=== PATIENT | female | born 1985 | race African-American/Black ===

== ENCOUNTER 2024-01-28 15:12 | Emergency (ER) | payer OTHER, SELFPAY ==
[2024-01-28 15:25] VITALS: BP 148/93; PULSE 84; RESP 16; TEMP 36.6; O2SAT 100; BMI 25.9
--- NOTE | 2024-01-28 15:25 | ED_ITS ---
HPI - General Adult General Chief complaint: Ear Problems Stated complaint: ref here by Dr Marks for IV fluids Time Seen by Provider: 01/28/24 16:02 Source: patient Mode of arrival: ambulatory Limitations: no limitations History of Present Illness HPI narrative: Patient is a year old female who presents to the emergency department for evaluation. She states she was contacted by her primary care doctor to present to the emergency department to receive IV antibiotics for a bone infection from her ear infection. She states she has been experiencing recurrent ear infections over the past year. She was evaluated by ENT surgeons of [facility] approximately 3 months ago, she has a known rupture of the left TM. Patient states on 12/24/2023 she tested positive for COVID-19, she was experiencing headaches along with this. Headache has been primarily left-sided, and relatively constant since then. On 12/27/2023 she received a prescription for a 7 day course of amoxicillin and hydrocortisone/neomycin/polymyxin B otic solution to treat a left ear infection. On 01/10/2024 she received her COVID-19 and influenza vaccine, ultimately resulting in progressive worsening of her headache. On 01/14/2024 she presented to [facility] for evaluation, she states that she had received IV fluids nausea medication for management of her headache, and was discharged home On 01/18/2024 she was evaluated by her primary care doctor for follow-up, and outpatient MRI was ordered On 01/20/2024 she was evaluated by ENT - advised that the rupture was slowly healing, has a follow-up appointment in March if not completely resolved there is plan for surgery On 01/24/2024 she had an MRI obtained which reveals a large amount of fluid within the left mastoids; left-sided mastoiditis, mucoid retention cyst within the bilateral maxillary sinuses Related Data Previous Rx's ?Medication ?Instructions ?Recorded [id number]-[id number]-[id number] 1 cap PO Q8H PRN pain #20 caps 01/28/24 50 mg-300 mg-40 mg capsule (Fioricet) cefdinir 300 mg capsule 300 mg PO BID #14 caps 01/28/24 Allergies Allergy/AdvReac Type Severity Reaction Status Date / Time No Known Allergies Allergy Verified 01/28/24 15:27 Review of Systems 2 Review of Systems: Yes all other systems are reviewed and are negative PMFSH Past Medical History Attestation statement: The following information was validated with the patient. Source: old records reviewed Physical Exam ED Vital Signs: Vital Signs - 24 hr 01/28/24 15:25 Temperature 97.8 F Pulse Rate 84 Respiratory Rate 16 Blood Pressure 148/93 H Pulse Oximetry 100 Oxygen Delivery Method Room Air BMI result Body Mass Index 25.9 Appearance: Alert.?Oriented to person, place and time. No acute distress.?Normal affect. Eyes: Pupils equal, round and reactive to light.? EOMI. No nystagmus. ENT: Pharynx normal.??Left TM with rupture, mild TTP over L mastoid,no auricular tenderness or swelling, no pain upon manipulation of the tragus, no evidence of otitis externa. Neck: Normal inspection.? Neck supple.??No cervical adenopathy. No nuchal rigidity CVS: Heart sounds normal. Normal heart rate and rhythm.? Pulses normal.?? Respiratory: No respiratory distress.? Lung sounds clear to auscultation bilaterally?? Abdomen: Soft and non-tender. Normoactive bowel sounds. Skin: Skin warm and dry.? Normal skin color. Extremities: No lower extremity edema.? Neuro: Moves all extremities spontaneously. Sensation intact bilaterally. CN II- XII intact. No focal neuro deficits. Ambulates with normal steady gait. Course Course Course Narrative: This is a Rapid Medical Examination (RME) performed by Cecilia Murphy PA-C in triage. Full HPI, ROS, assessment and treatment plan per primary provider in the Main ED. 38 yo female here requesting IV abx. had MRI completed on 01/26/24 after reporting left sided migraine w/ dizziness and blurred vision. evaluated at [facility]. called today and was told she has an infection in my ear bone and needed to come here for IV antibiotics. symptoms have continued. + L ear w/ ruptured TM. Slightly tender to palpation of mastoid without protrusion of the auricle or obvious mass. Plan: records requested from [facility]. basic labs ordered. Medical Decision Making Medical Decision Making MDM Narrative: Patient is a 38-year-old female with past medical history of leukopenia, thrombocytopenia, small B-cell lymphoma reportedly in remission since 2013, depression, cirrhosis presenting for evaluation in the emergency department by advised of her primary care doctor due to MRI findings consistent with mastoiditis. History and physical examination concerning for chronic mastoiditis chronic otitis media of the ruptured verses acute suppurative mastoiditis. She is not experiencing fevers, there was no localized erythema over the mastoid bone, no edematous pinna or displacement of the auricle. She overall appears well, nontoxic, afebrile without tachycardia. No meningismus to suggest meningitis. Recent MRI, not consistent with ICH, SDH, aneurysm, intracranial mass. No temporal tenderness. She has no focal neurological deficits. I discussed this case with ED attending Dr. Justice who agrees this is likely chronic otitis media, discussed consideration for IV antibiotics and/or transfer to tertiary care center with ENT coverage, do not suspect this is acute superficial mastoiditis and such treatment. Plan of care for discharge home with course of oral antibiotics, Fioricet for her headache management, and outpatient follow-up with ENT/ PCP , she was given strict return precautions Differential Diagnosis Differential Diagnoses: The differential diagnosis associated with the presentation includes (See narrative above) Admission/Observation Consideration of admission/observation: Escalation of care including admission/observation considered (See narrative above) Lab Data MDM Lab Attestation statement: I reviewed the patient's lab results. CBC reveals leukopenia 2.8, known history of such unclear of baseline, no anemia, thrombocytopenia. No electrolyte derangement. No MONA. 01/28/24 15:36 01/28/24 15:36 Labs: Lab Results 01/28/24 Range/Units 15:36 WBC 2.8 L (4.8-10.8) X10*3/uL RBC 4.68 (4.20-5.50) X10*6/uL Hgb 12.6 (12.0-16.0) g/dl Hct 38.9 (37.0-47.0) % MCV 83.1 (80.0-98.0) fL MCH 26.9 L (27.0-33.0) pg MCHC 32.4 (31.0-35.0) g/dl RDW 14.4 (11.0-16.0) % Plt Count 108 L (160-400) X10*3/uL MPV 11.4 (9.4-12.3) fL Immature Gran % (Auto) 0.4 (0.0-0.4) % Neut % (Auto) 54.9 (45-73) % Lymph % (Auto) 27.7 (20-40) % [place] % (Auto) 14.5 H (2-11) % Eos % (Auto) 1.8 (0-4) % Baso % (Auto) 0.7 (0-2) % Lymph # (Auto) 0.8 L (1.2-4.9) X10*3/uL [place] # (Auto) 0.4 (0.1-1.2) X10*3/uL Eos # (Auto) 0.1 (0.0-0.4) X10*3/uL Baso # (Auto) 0.0 (0.0-0.2) X10*3/uL Abs Immat Gran (auto) 0.01 (0.00-0.03) X10*3/uL Absolute Neuts (auto) 1.6 L (2.0-8.3) x10*3/uL Absolute Nucleated RBC 0.000 (0.0-0.012) X10*3/uL Nucleated RBC % (auto) 0.0 (0.0-0.2) /100WBC Sodium 138 (135-145) mmol/L Potassium 4.5 (3.3-5.1) mmol/L Chloride 107 (96-108) mmol/L Carbon Dioxide 27 (22-29) mmol/L Anion Gap 9 L (12-20) BUN 9 (9-16) mg/dL Creatinine 0.74 (0.5-1.4) mg/dL Estim Creat Clear Calc 85.5 Estimated GFR > 60 Random Glucose 91 (60-115) mg/dL Calcium 8.9 (8.4-10.2) mg/dL Total Bilirubin 0.4 (0.0-1.0) mg/dL AST 43 H (5-31) U/L ALT 52 H (0-31) U/L Alkaline Phosphatase 116 (39-117) U/L Total Protein 7.6 (6.5-8.0) g/dL Albumin 3.9 (3.5-5.0) g/dL External Record Review External record reviewed: Outpatient record (See HPI) and Prior outpatient radiology (See HPI) Prescription Management I considered prescription management with: Pain Medication and Antibiotic Discharge Plan Discharge Clinical Impression: Mastoiditis Qualifiers: Laterality: left Qualified Code(s): H70.92 - Unspecified mastoiditis, left ear Patient Disposition: Home, Self-Care Instructions: Mastoiditis (ED) Additional Instructions: Complete entire course of antibiotics as prescribed; cefdinir A prescription for management of your headaches has been sent to the pharmacy; Fioricet. This medication may make you feel drowsy. Contact your ENT specialist first thing Wednesday to arrange for follow-up Prescriptions: New cefdinir 300 mg capsule 300 mg PO BID Qty: 14 0RF [id number] [Fioricet] 50-300-40 mg capsule 1 cap PO Q8H PRN (Reason: pain) Qty: 20 0RF Referrals: Sandra Marks PA [Primary Care Provider] - Print Language: Czech
[2024-01-28 15:42] LABS: MANUAL DIFF FLAG NO
[2024-01-28 15:55] LABS: Basophils Percent Auto 0.7 % (0-2); Eosinophils Absolute Auto 0.1 X10*3/uL (0.0-0.4); Eosinophils Percent Auto 1.8 % (0-4); Hematocrit 38.9 % (37.0-47.0); Hemoglobin 12.6 g/dl (12.0-16.0); Imm Gran Abs Auto 0.01 X10*3/uL (0.00-0.03); Imm Gran Pct Auto 0.4 % (0.0-0.4); Lymphocytes Absolute Auto 0.8 X10*3/uL (1.2-4.9); Lymphocytes Percent Auto 27.7 % (20-40); Mean Corpuscular HGB Conc 32.4 g/dl (31.0-35.0); Mean Corpuscular Hemoglobin 26.9 pg (27.0-33.0); Mean Corpuscular Volume 83.1 fL (80.0-98.0); Mean Platelet Volume 11.4 fL (9.4-12.3); Monocytes Absolute Auto 0.4 X10*3/uL (0.1-1.2); Monocytes Percent Auto 14.5 % (2-11); Neutrophils Absolute Auto 1.6 x10*3/uL (2.0-8.3); Neutrophils Percent Auto 54.9 % (45-73); Platelet Count 108 X10*3/uL (160-400); Red Blood Count 4.68 X10*6/uL (4.20-5.50); Red Cell Distribution Width 14.4 % (11.0-16.0); White Blood Count 2.8 X10*3/uL (4.8-10.8)
[2024-01-28 16:02] LABS: Alanine Aminotransferase 52 U/L (0-31); Albumin Level 3.9 g/dL (3.5-5.0); Alkaline Phosphatase 116 U/L (39-117); Anion Gap 9 (12-20); Aspartate Amino Transferase 43 U/L (5-31); Bilirubin Total 0.4 mg/dL (0.0-1.0); Blood Urea Nitrogen 9 mg/dL (9-16); Calcium 8.9 mg/dL (8.4-10.2); Carbon Dioxide 27 mmol/L (22-29); Chloride 107 mmol/L (96-108); Creatinine Clr Calc Pharmacy 85.5; Estimated Glomerular Filt Rate > 60; Glucose Random 91 mg/dL (60-115); Potassium 4.5 mmol/L (3.3-5.1); Sodium 138 mmol/L (135-145); Total Protein 7.6 g/dL (6.5-8.0)
[2024-01-28 17:22] LABS: Lactic Acid 1.3 mmol/L (0.5-2.0)
[2024-01-28 17:25] LABS: C Reactive Protein < 0.10 mg/dL (< or = 0.50)
--- OUTSIDE RECORDS SUMMARY | 2024-01-28 17:29 | XMS_ITS | Continuity of Care Document ---
Author Organization [facility] ter Address [address] [place] [address]- Care Team Providers Care Drain Cleaner Name Role Phone Ileana Barlow MD Primary Care Physician Encounter [facility] Date(s): 09/22/23 - 09/22/[address] [address]- Discharge Disposition: A-D/C Home Attending Physician: Hemal Chao DO Admitting Physician: Hemal Chao DO Referring Physician: Not on Staff, Referring MD Allergies, Adverse Reactions, Alerts No Known Allergies Medications amoxicillin 875 mg oral tablet 1 tablet = 875 mg, By Mouth, 2 times a day, # 28 tablet, 0 Refills, Maintenance, Tablet Start Date: 02/20/10 Stop Date: 03/06/10 Status: Ordered ondansetron 4 mg oral tablet, disintegrating 1 tablet = 4 mg, By Mouth, Every 8 hours, PRN as needed for nausea/vomiting, # 10 tablet, 0 Refills, Acute 09/29/23 8:00:00 EDT, 09/22/23 9:31:00 EDT, DIS Tablet, [facility]/pharmacy #[id number], Partial fill upon patient request if the prescription is for a sched... Start Date: 09/22/23 Stop Date: 09/29/23 Status: Ordered Zithromax 250 mg oral capsule 4, tablet, By Mouth, Once, 0, 0, 12/04/05 8:30:15, Print MARY JANE Number, [facility] [id number], 42, Constant Indicator Start Date: 12/04/05 Status: Ordered Vital Signs Most recent to oldest [Reference Range]: 1 2 3 Height 155 cm (09/22/23 7:16 AM) Weight 64 kg (09/22/23 7:16 AM) Oxygen Saturation [94-100 %] 99 % (5/29/24 9:47 AM) 100 % (09/22/23 8:22 AM) 100 % (09/22/23 7:32 AM) Pulse Rate [55-90 bpm] 84 bpm (09/22/23 9:47 AM) 79 bpm (09/22/23 8:22 AM) 82 bpm (09/22/23 7:32 AM) Body Mass Index [18.5-24.99 kg/m2] 26.64 kg/m2 *H* (09/22/23 7:16 AM) Blood Pressure [90-138/55-84 mm Hg] 119/83mm Hg (09/22/23 9:47 AM) 123/78mm Hg (09/22/23 8:22 AM) 118/81mm Hg (09/22/23 7:32 AM) Respiratory Rate [16-30 br/min] 19 br/min (09/22/23 9:47 AM) 18 br/min (09/22/23 8:22 AM) 19 br/min (09/22/23 7:32 AM) Temperature [96.8-100.4 DegF] 98.3 DegF (09/22/23 8:22 AM) 98.1 DegF (09/22/23 7:32 AM) 98.2 DegF (09/22/23 7:16 AM) Mode of Delivery (Oxygen) Room air (09/22/23 9:47 AM) Room air (09/22/23 8:22 AM) Room air (09/22/23 7:32 AM) Blood pressure sites Arm, left (09/22/23 9:47 AM) Arm, left (09/22/23 8:22 AM) Arm, left (09/22/23 7:32 AM) Temperature Route Oral (09/22/23 8:22 AM) Oral (09/22/23 7:32 AM) Oral (09/22/23 7:16 AM) Dry Weight 64 kg (09/22/23 7:16 AM) Weight Obtained Via Patient/family state d (09/22/23 7:16 AM) Dry Weight Obtained Via Patient/family s tated (09/22/23 7:16 AM) Note * Teodora Vazquez: PERFORM, SIGN, VERIFY Event Display: Patient Education Handout Authored Date: [id number] * Teodora Vazquez: PERFORM Event Display: Patient Education Leaflets Authored Date: [id number] Vomiting (Adult) ?? [id number] Vomiting (Adult) Vomiting is a common symptom that may be due to different causes. These include gastroenteritis (stomach flu), food poisoning, and gastritis. Other more serious causes of vomiting may be hard to diagnose early in the illness. That's why it's important to watch for the warning signs listed below. The main danger from repeated vomiting is dehydration. This is because of the loss of water and minerals from the body. When this occurs, your body fluids must be replaced. Home care ??? If symptoms are severe, rest at home for the next 24 hours. ??? Because your symptoms may be from an infection, wash your hands often and well. Use soap and clean, running water or alcohol-based senior technical program manager to keep from spreading the infection to others. ??? Wash your hands for at least 20 seconds. Scrub all surfaces of your hands, including between your fingers and under your fingernails each time you wash. Humming the Happy Birthday song twice while you wash is an easy way to make sure you've washed for 20 seconds. ??? Wash your hands after using the toilet, before and after preparing food, before eating food, after changing a diaper, cleaning a wound, caring for a sick person, and blowing your nose, coughing, or sneezing. You should also wash your hands after caring for someone who is sick, touching pet food, or treats, and touching an animal, or animal waste. ??? You may use acetaminophen??or NSAID medicines such as ibuprofen or naproxen to control fever, unless another medicinewas prescribed. Talk with your provider before using these medicines if you have chronic liver or kidney disease or ever had a stomach ulcer or digestive bleeding. Never give aspirin to anyone younger than 18 who is ill with a fever. It may cause severe liver damage. Don't use NSAID medicines if you are already taking one for another condition such as arthritis or take aspirin for heart disease or after a stroke. ??? Don't use tobacco or drink alcohol. These may make your symptoms worse. If youhave trouble stopping either substance, ask your provider for treatment resources. ??? If medicinesfor vomiting were prescribed, take as directed. Tell your provider if they don't work within the expected time period. ??? Once vomiting stops, then follow these guidelines: During the first 12 to 24 hours, follow the diet below: ??? Fruit juices. Apple, grape juice, clear fruit drinks, and electrolyte replacement drinks. ??? Beverages. Water, soft drinks without caffeine; mineral water (plain or flavored), and decaffeinated tea and coffee. ??? Soups. Clear broth and bouillon. ??? Desserts. Plain gelatin, ice pops, and fruit juice bars. As you feel better, you may add 6 to 8 ounces of yogurt per day. During the next 24 hours you may add the following to the above: ??? Hot cereal, plain toast, bread, rolls, and crackers ??? Plain noodles, rice, mashed potatoes, and chicken noodle or rice soup ??? Unsweetened canned fruit such as applesauce, bananas. Don't have pineapple or citrus. ??? Limit caffeine and chocolate. No spices or seasonings except salt. During the next 24 hours: Gradually go back to your normal diet, as you feel better and your symptoms lessen. ?? Follow-up care Follow up with your healthcare provider as advised. ?? When to seek medical advice Call your healthcare provider right away if any of these occur: ??? Constant right-sided lower belly pain or increasing general belly pain ??? Continued vomiting (unable to keep liquids down) for 24 hours ??? Vomiting blood or what looks like coffee grounds ??? Swollen belly ??? Frequent diarrhea (more than 5 times a day), or blood (red or black color) or mucus in diarrhea ??? Peeing less than usual or extreme thirst ??? Weakness, dizziness, or fainting ??? Unusually drowsy or confused ??? Fever of 100.4??F (38??C) oral or higher, or as directed by your provider ??? Yellow color of the eyes or skin ??? Other symptoms get worse or you have new symptoms ?? Last Reviewed Date: 2021 ?? [employer]. All rights reserved. This information is not intended as a substitute for professional medical care. Always follow your healthcare professional's instructions. ?? Patient Care team information Care Team Personnel Name: Ileana Barlow MD Position: [facility] Physician - Primary Care Member Role: PCP Address: Address: [address] [place] [address]- Care Team Related Persons Name: MEDARDO HUMPHREYS Address: home [address] [place] [address] Name: ASIA GALVEZ
--- OUTSIDE RECORDS SUMMARY | 2024-01-28 17:29 | XMS_ITS | Continuity of Care Document ---
Author Organization [facility] Address [address] [place] [address]- Care Team Providers Care Air Conditioning Insulation Installer Name Role Phone Luis Alfredo Parker MD Primary Care Physician Encounter [facility] Date(s): 05/21/23 - 06/20/23 [facility] [address] [place] [address]- Allergies, Adverse Reactions, Alerts No Known Allergies Medications amoxicillin 875 mg oral tablet 1 tablet = 875 mg, By Mouth, 2 times a day, # 28 tablet, 0 Refills, Maintenance, Tablet Start Date: 02/20/10 Stop Date: 03/06/10 Status: Ordered Zithromax 250 mg oral capsule 4, tablet, By Mouth, Once, 0, 0, 12/04/05 8:30:15, Print MARY JANE Number, [facility] WG68, 42, Constant Indicator Start Date: 12/04/05 Status: Ordered Patient Care team information Care Team Personnel Name: Luis Alfredo Parker MD Position: S Physician - Primary Care Member Role: PCP Address: Address: [address] [place] [address] [place] [address]- Care Team Related Persons Name: MEDARDO HUMPHREYS Address: [address] [place] [address] Name: ASIA GALVEZ Address: home [address] [place] [address]
--- OUTSIDE RECORDS SUMMARY | 2024-01-28 17:29 | XMS_ITS | Continuity of Care Document ---
Author Organization [facility] ter Address [address] [place] [address]- Care Team Providers Care Forestry Aide Name Role Phone Ileana Barlow MD Primary Care Physician [phone] Encounter [facility] Date(s): 07/12/23 - 07/12/[address] [address]- Encounter Diagnosis Perforated tympanic membrane on examination(Final) - 07/12/23 Discharge Disposition: A-D/C Home Attending Physician: Jolene Borden MD Admitting Physician: Jolene Borden MD Referring Physician: Not on Staff, Referring MD Allergies, Adverse Reactions, Alerts No Known Allergies Medications amoxicillin 875 mg oral tablet 1 tablet = 875 mg, By Mouth, 2 times a day, # 28 tablet, 0 Refills, Maintenance, Tablet Start Date: 02/20/10 Stop Date: 03/06/10 Status: Ordered ofloxacin 0.3% otic solution See Instructions, 2 drops left ear 2 times a day 5 days, # 5 mL, Refills 0, Tot. Refills 0, Acute, 07/17/23 9:00:00 EDT, 07/12/23 11:37:00 EDT, Instructions Replace Required Details, Route to Pharmacy Electronically, [facility]/pharmacy #[id number], Partial fill u... Start Date: 07/12/23 Stop Date: 07/17/23 Status: Ordered Zithromax 250 mg oral capsule 4, tablet, By Mouth, Once, 0, 0, 12/04/05 8:30:15, Print MARY JANE Number, [facility] WG68, 42, Constant Indicator Start Date: 12/04/05 Status: Ordered Vital Signs Most recent to oldest [Reference Range]: 1 2 Height 155 cm (07/12/23 10:57 AM) Weight 63 kg (07/12/23 10:57 AM) Oxygen Saturation [94-100 %] 97 % (07/12/23 10:57 AM) 99 % (07/12/23 10:53 AM) Pulse Rate [55-90 bpm] 108 bpm *H* (07/12/23 10:57 AM) 120 bpm *H* (07/12/23 10:53 AM) Body Mass Index [18.5-24.99 kg/m2] 26.22 kg/m2 *H* (07/12/23 10:57 AM) Blood Pressure [90-138/55-84 mm Hg] 126/ 100mm Hg (07/12/23 10:57 AM) Respiratory Rate [16-30 br/min] 18 br/mi n (07/12/23 10:57 AM) 18 br/min (07/12/23 10:53 AM) Temperature [96.8-100.4 DegF] 99.0 DegF (07/12/23 10:57 AM) Mode of Delivery (Oxygen) Room air (07/12/23 10:57 AM) Room air (07/12/23 10:53 AM) Blood pressure sites Arm, left (07/12/23 10:57 AM) Temperature Route Oral (07/12/23 10:57 AM) Dry Weight 63 kg (07/12/23 10:57 AM) Weight Obtained Via Patient/family state d (07/12/23 10:57 AM) Dry Weight Obtained Via Patient/family s tated (07/12/23 10:57 AM) Note * Jolene Borden MD: PERFORM, SIGN, VERIFY Event Display: Patient Education Handout Authored Date: [id number] * Jolene Borden MD: PERFORM Event Display: Patient Education Leaflets Authored Date: [id number] Ruptured Infected Eardrum (Adult) ?? [id number] Ruptured Infected Eardrum (Adult) The middle ear is the space behind the eardrum.??You have an infection of the middle ear. This can lead to pressure that causes pain and may cause the eardrum to break (rupture). This may cause sudden worse pain. Pus or blood will drain out of the ear canal.??Your hearing will also likely be affected. The infection may be treated with antibiotics. The eardrum usually heals completely on its own. If it does not, further treatment is needed. For this reason, it???s important to have a follow-up examwith your healthcare provider or an research associate molecular biology. Home care ??? Keep taking prescribed antibiotics until all of the medicine is gone. Do this even ifyou feel better after the first few days. ??? Take any other medicines as prescribed. Don't take any other medicine without asking your healthcare provider, especially the first time. ??? Keep a clean cotton ball in the ear canal to absorb drainage. Change the cotton often when it becomes soiled with fluid drainage. Don???t let water get into the ear. Don???t put any medicine drops into the ear unless your healthcare provider tells you to do so. ??? Don???t smoke and stay away from secondhand smoke. ?? Follow-up care Follow up with your healthcare provider in 2 weeks, or as advised. This is to make sure the infection is getting better, and the eardrum is healing. Also follow up with specialists if advised for a hearing test or exam. ?? When to get medical advice Call your healthcare provider if any of the following occur: ??? Fever of 100.4??F (38??C) or higher, or as directed by your healthcare provider ??? Pain that gets worse or doesn???t get better ??? Hearing loss or ringing in the ear that gets worse ?? Call 911 Call 911 if any of the following occur: ??? Unusual drowsiness, dizziness, or confusion ??? Convulsions (seizure) ??? A fever and a severe headache, neck pain, or a stiff neck ?? Last Reviewed Date: 2022 ?? [id number] [employer]. All rights reserved. This information is not intended as a substitute for professional medical care. Always follow your healthcare professional's instructions. ?? Patient Care team information Care Team Personnel Name: Ileana Barlow MD Position: S Physician - Primary Care Member Role: PCP Address: Address: [address] [place] [address]- Care Team Related Persons Name: MEDARDO HUMPHREYS Address: [address] [place] [address] Name: ASIA GALVEZ Address: home [address] [place] [address]
--- OUTSIDE RECORDS SUMMARY | 2024-01-28 17:29 | XMS_ITS | Continuity of Care Document ---
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 Name Role Phone Ileana Barlow MD Primary Care Physician En[place] [facility] [place]): 01/14/24 - 01/14/[address] [address]- Discharge Disposition: A-D/C Home Attending Physician: Apolonia Kenyon DO Admitting Physician: Apolonia Kenyon DO Referring Physician: Not on Staff, Referring MD Allergies, Adverse Reactions, Alerts No Known Allergies Medications amoxicillin 875 mg oral tablet 1 tablet = 875 mg, By Mouth, 2 times a day, # 28 tablet, 0 Refills, Maintenance, Tablet Start Date: 02/20/10 Stop Date: 03/06/10 Status: Ordered hydrocortisone/neomycin/polymyxin B otic 1%-0.35%-06338 u/ml solution 4 drops, Ear, Left, 3 times a day, # 10 mL, 0 Refills, Maintenance, 12/27/23 17:35:00 EDT, Solution, [id number], Partial fill upon patient request if the prescription is for a schedule II opioid drug., 4 drops Ear, Left 3 times a day,x7 days,... Start Date: 12/27/23 Stop Date: 01/03/24 Status: Ordered Reglan 10 mg oral tablet 1 tablet = 10 mg, By Mouth, 3 times a day, PRN Nausea & Vomiting, # 6 tablet, 5 Refills, Acute 01/15/24 16:50:00 EDT, 01/14/24 16:50:00 EDT, [id number], Partial fill upon patient request if the prescription is for a schedule II opioid drug., 1... Start Date: 01/14/24 Stop Date: 01/15/24 Status: Ordered Zithromax 250 mg oral capsule 4, tablet, By Mouth, Once, 0, 0, 12/04/05 8:30:15, Print MARY JANE Number, [facility] [id number], 42, Constant Indicator Start Date: 12/04/05 Status: Ordered Vital Signs Most recent to oldest [Reference Range]: 1 2 3 Height 155 cm (01/14/24 11:58 AM) 155 cm (01/14/24 10:15 AM) Oxygen Saturation [94-100 %] 99 % (01/14/24 5:11 PM) 100 % (01/14/24 10:15 AM) 98 % (01/14/24 10:09 AM) Pulse Rate [55-90 bpm] 70 bpm (01/14/24 5:11 PM) 84 bpm (01/14/24 10:15 AM) 88 bpm (01/14/24 10:09 AM) Blood Pressure [90-138/55-84 mm Hg] 129/70mm Hg (01/14/24 5:11 PM) 125/79mm Hg (01/14/24 10:15 AM) Respiratory Rate [16-30 br/min] 18 br/min (01/14/24 5:11 PM) 18 br/min (01/14/24 10:15 AM) Temperature [96.8-100.4 DegF] 98.6 DegF (01/14/24 5:11 PM) 98.2 DegF (01/14/24 10:15 AM) Mode of Delivery (Oxygen) Room air (01/14/24 5:11 PM) Room air (01/14/24 10:15 AM) Room air (01/14/24 10:09 AM) Blood pressure sites Arm, left (01/14/24 5:11 PM) Arm, left (01/14/24 10:15 AM) Temperature Route Oral (01/14/24 5:11 PM) Oral (01/14/24 10:15 AM) Dry Weight 65 kg (01/14/24 11:58 AM) 65 kg (01/14/24 10:15 AM) Dry Weight Obtained Via Patient/family s tated (01/14/24 10:15 AM) Note * Kenyon DO, Apolonia: PERFORM Event Display: Patient Education Leaflets Authored Date: [id number] Headache, Unspecified ?? [id number] Headache, Unspecified A number of things can cause headaches. The cause of your headache isn???t clear. But it doesn???t seem to be a sign of any serious illness. Headache affects almost everyone at some time. It's the most common reason people miss days from work or school. A physical and nervous system exam can help rule out any serious causes of headache. Sometimes you may need more testing. This could include blood work or imaging tests of the head, such as a CAT scan or MRI. You could have a tension headache or a migraine headache. Stress can cause a tension headache. This can happen if you tense the muscles of your shoulders, neck, and scalp without knowing it. If this stress lasts long enough, you may develop a tension headache. It's not clear why migraines occur, but certain things called triggers can raise the risk of havinga migraine attack. Migraine triggers may include emotional stress or depression, or by hormone changes during the menstrual cycle. Other triggers include control pills and other medicines, alcohol or caffeine, foods with tyramine, such as aged cheese or wine, eyestrain, weather changes, missed meals, and lack of sleep or oversleeping. Other causes of headache include: ??? Viral illness with high fever ??? Head injury with concussion ??? Sinus, ear, or throat infection ??? Dental pain and jaw joint (TMJ) pain More serious but less common causes of headache include stroke, brain hemorrhage, brain tumor, meningitis, and encephalitis. Home care Follow these tips when taking care of yourself at home: ??? Don???t drive yourself home if you weregiven pain medicine for your headache. Instead, have someone else drive you home. Try to sleep whenyou get home. You should feel much better when you wake up. ??? Apply heat to the back of your neckto ease a neck muscle spasm. Take care of a migraine headache by putting an ice pack on your forehead or at the base of your skull. ??? If you have nausea or vomiting, eat a light diet until your headache eases. ??? If you have a migraine headache, use sunglasses when in the daylight or around bright indoor lighting until your symptoms get better. Bright glaring light can make this type of headache worse. ?? Follow-up care Follow up with your healthcare provider, or as advised. Talk with your provider if you have frequent headaches. They can help figure out a treatment plan. By knowing the earliest signs of headache, and starting treatment right away, you may be able to stop the pain yourself. ?? When to get medical advice Call your healthcare provider right away??if any of the following occur: ??? Your head pain suddenly gets worse after sexual intercourse or strenuous activity ??? Your head pain doesn???t get better within 24 hours ??? You have new symptoms ??? You aren???t able to keep liquids down (repeated vomiting) ??? Fever of 100.4??F (38??C) or higher, or as directed by your healthcare provider ??? Stiff neck ??? Extreme drowsiness, confusion, or fainting ??? Dizziness or dizziness with spinning sensation (vertigo) ??? Weakness in an arm or leg or one side of your face ??? You have trouble talking or seeing ?? Last Reviewed Date: 2022 ?? [id number] [employer]. All rights reserved. This information is not intended as a substitute for professional medical care. Always follow your healthcare professional's instructions. ?? Patient Care team information Care Team Personnel Name: Ileana Barlow MD Position: S Physician - Primary Care Member Role: PCP Address: Address: [address] [place] [id number]- Care Team Related Persons Name: MEDARDO HUMPHREYS Address: [address] [place] [address] Name: ASIA GALVEZ
[2024-01-28 18:11] VITALS: BP 127/83; PULSE 94; RESP 16; TEMP 36.7; O2SAT 96
[2024-01-28 19:15] VITALS: BP 127/83; PULSE 94; RESP 16; TEMP 36.7; O2SAT 96
[2024-01-28 19:48] LABS: Erythrocyte Sedimentation Rate 12 MM/HR (0-20)
== END 2024-01-28 19:15 | disposition home or self-care (01) ==
PROVIDERS: Nurse Practitioner Family; Physician Assistant Medical; Emergency Provider Internal Medicine; PCP Physician Assistant
DX: H70.92 Unspecified mastoiditis, left ear (principal); H92.02 Otalgia, left ear
CPT/HCPCS: 36415; 80053; 83605; 85025; 85652; 86140; 87040; 99282; 99283